=== PATIENT | female | born 1995 | race Caucasian/White ===

== ENCOUNTER 2024-02-03 20:46 | Emergency (ER) | payer OTHER, SELFPAY ==
--- NOTE | ~2024-02-03 | US_ITS ---
EXAMINATION: US OBSTETRICAL ULTRASOUND CLINICAL INFORMATION: patient with bleeding. COMPARISON: None available. LMP: Unknown.. TECHNIQUE: Transabdominal and transvaginal obstetrical ultrasound performed. FINDINGS: The uterus is normal in appearance. The cervix is closed. There is a single intrauterine gestational sac and yolk sac. The mean sac diameter is 0.73 cm suggesting a 5 week 2 day gestation. No pole currently identified. MATERNAL ADNEXA: The right maternal ovary measures 3.7 x 2.3 x 2.4 cm. The left maternal ovary measures 2.4 x 1.5 x 1.7 cm. There is no significant maternal adnexal mass. No maternal pelvic ascites. US/US OB pelvic and transvaginal IMPRESSION: Single intrauterine gestational sac and yolk sac identified suggesting a 5 week 2 day gestation. No pole currently identified. Findings likely related to early . Correlation with quantitative beta hCG and follow-up is needed. Electronically signed by: Farzad Hung MD 02/04/2024 03:16 AM EDT
[2024-02-03 21:37] VITALS: BP 125/74; PULSE 106; RESP 18; TEMP 36.9; O2SAT 100; BMI 28.5
[2024-02-03 22:04] LABS: Hematocrit 38.7 % (37.0-47.0); Hemoglobin 13.9 g/dl (12.0-16.0); Mean Corpuscular HGB Conc 35.9 g/dl (31.0-35.0); Mean Corpuscular Hemoglobin 32.2 pg (27.0-33.0); Mean Corpuscular Volume 89.6 fL (80.0-98.0); Platelet Count 306 X10*3/uL (160-400); Red Blood Count 4.32 X10*6/uL (4.20-5.50); White Blood Count 12.8 X10*3/uL (4.8-10.8)
[2024-02-03 22:08] LABS: Appearance Urine Clear; Color Urine Yellow; Glucose Urine UA Negative (Negative); Leukocyte Esterase Urine Trace (Negative); Nitrite Urine Negative (Negative); Specific Gravity - Urine 1.015 (1.005-1.025); UMIC TRIGGER UACC YES; Urine Blood Negative (Negative); Urine Ketones Negative (Negative); Urine Protein Negative (Neg-Trace)
[2024-02-03 22:25] LABS: Alanine Aminotransferase 37 U/L (0-31); Albumin Level 4.3 g/dL (3.5-5.0); Alkaline Phosphatase 81 U/L (39-117); Anion Gap 10 (12-20); Aspartate Amino Transferase 14 U/L (5-31); Bilirubin Total 0.2 mg/dL (0.0-1.0); Blood Urea Nitrogen 8 mg/dL (9-16); Calcium 9.3 mg/dL (8.4-10.2); Carbon Dioxide 24 mmol/L (22-29); Chloride 107 mmol/L (96-108); Creatinine Clr Calc Pharmacy 113.4; Estimated Glomerular Filt Rate > 60; Glucose Random 138 mg/dL (60-115); HCG Quantitative 7409 mIU/mL; Potassium 3.3 mmol/L (3.3-5.1); Sodium 138 mmol/L (135-145); Total Protein 7.6 g/dL (6.5-8.0)
[2024-02-03 22:40] LABS: Bacteria Urine None Seen (None Seen); Hyaline Casts Urine 0-2 /LPF (0-2); RBC Urine 0-2 /HPF (0-2); WBC Urine 0-5 /HPF (0-5)
[2024-02-04 01:12] VITALS: BP 131/76; PULSE 97; RESP 17; TEMP 36.7; O2SAT 97
--- NOTE | 2024-02-04 01:21 | ED_ITS ---
HPI - Female Genitourinary General Chief complaint: Vaginal Bleeding Stated complaint: Vaginal bleeding Time Seen by Provider: 02/04/24 01:21 Source: patient Mode of arrival: ambulatory Limitations: no limitations History of Present Illness ED Provider: Dr. Farrell HPI Narrative: Patient had her IUD removed 3 months ago and has not had a normal menses since then. This week she had some spotting and right lower abdomina pain. She took 3 tests at home all were positive. She is a 1 para 1. She is RH negative Related Data Allergies Allergy/AdvReac Type Severity Reaction Status Date / Time ibuprofen [IBUPROFEN] Allergy Unknown Hallucinati Unverified 02/03/24 21:44 ons Review of Systems 2 Review of Systems: Yes all other systems are reviewed and are negative Neurologic: Denies Sensory deficit (Neuro) [facility] Social History Social History Advance Directives: No Advance Directives Information Provided: No Do you have a plan to hurt others: No Plan Physical Exam 2 Vital Signs: Vital Signs: Last Vital Signs Temp 98.0 F 02/04/24 01:12 Pulse 97 02/04/24 01:12 Resp 17 02/04/24 01:12 BP 131/76 02/04/24 01:12 Pulse Ox 97 02/04/24 01:12 O2 Del Method Room Air 02/04/24 01:12 BMI result Body Mass Index 28.5 Const: General: healthy appearing Nutritional Appearance: average body habitus Orientation/consciousness: oriented to person and patient oriented x3 Limitations: no limitations HEENT: Head: Yes normal to inspection Ears: external ears normal General nose exam: Normal external nose present Mouth: Normal oral and palatal mucosa present and oropharynx normal Throat: Yes posterior oropharynx normal Eyes: General: appearance normal, both eyes and all related structures Neck: Other: supple Neck: Yes normal visual inspection Chest: Chest palpation & inspection: normal inspection of the chest Resp: Auscultation: clear to auscultation bilaterally Cardio: Jugular venous distension: no JVD Rate: regular rate Rhythm: r egular rhythm Heart sounds: S1 normal heart sound present and S2 normal heart sound present GI: Inspection: Yes normal to inspection Palpation (GI): Soft to palpation, nontender and No hepatosplenomegaly present Auscultation: normal bowel sounds : General: Yes no CVA tenderness Back/Spine/Pelvis: Back: no CVA tenderness Skin: General skin exam: no rashes or lesions noted Neuro: General: oriented to person and patient oriented x3 Cranial nerves: Yes CN's II-XII intact bilaterally Motor exam (neuro): 5/5 motor strength present throughout Sensory Exam: No Sensory deficit (Neuro) Extrem: General: Yes normal to inspection Psych: Appearance: grossly normal Course Reevaluation(s) Reevaluation #1: patient with Bhcg of 7400, US shows gestational sac no pole, early vs threatened will give rhogam, and refer to studio musician. Time: 03:59 Medical Decision Making Differential Diagnosis Differential Diagnoses: The differential diagnosis associated with the presentation includes (ectopic , IUP, threatened , miscarriage) Admission/Observation Consideration of admission/observation: Escalation of care including admission/observation considered (upon arrival patient considered for admission) Lab Data 02/03/24 21:57 02/03/24 21:57 Labs: Lab Results 02/03/24 02/04/24 Range/Units 21:57 02:02 WBC 12.8 H (4.8-10.8) X10*3/uL RBC 4.32 (4.20-5.50) X10*6/uL Hgb 13.9 (12.0-16.0) g/dl Hct 38.7 (37.0-47.0) % MCV 89.6 (80.0-98.0) fL MCH 32.2 (27.0-33.0) pg MCHC 35.9 H (31.0-35.0) g/dl RDW 12.0 (11.0-16.0) % Plt Count 306 (160-400) X10*3/uL MPV 9.0 L (9.4-12.3) fL Absolute Nucleated RBC 0.000 (0.0-0.012) X10*3/uL Nucleated RBC % (auto) 0.0 (0.0-0.2) /100WBC Sodium 138 (135-145) mmol/L Potassium 3.3 (3.3-5.1) mmol/L Chloride 107 (96-108) mmol/L Carbon Dioxide 24 (22-29) mmol/L Anion Gap 10 L (12-20) BUN 8 L (9-16) mg/dL Creatinine 0.72 (0.5-1.4) mg/dL Estim Creat Clear Calc 113.4 Estimated GFR > 60 Random Glucose 138 H (60-115) mg/dL Calcium 9.3 (8.4-10.2) mg/dL Total Bilirubin 0.2 (0.0-1.0) mg/dL AST 14 (5-31) U/L ALT 37 H (0-31) U/L Alkaline Phosphatase 81 (39-117) U/L Total Protein 7.6 (6.5-8.0) g/dL Albumin 4.3 (3.5-5.0) g/dL Beta HCG, Quant 7409 mIU/mL Urine Color Yellow Urine Appearance Clear Urine pH 8.0 (5.0-9.0) Ur Specific [place] 1.015 (1.005-1.025) Urine Protein Negative (Neg-Trace) mg/dL Urine Glucose (UA) Negative (Negative) mg/dL Urine Ketones Negative (Negative) mg/dL Urine Blood Negative (Negative) Urine Nitrite Negative (Negative) Ur Leukocyte Esterase Trace H (Negative) Urine RBC 0-2 (0-2) /HPF Urine WBC 0-5 (0-5) /HPF Ur Squamous Epith Cells 3-5 (0-2) /HPF Urine Bacteria None Seen (None Seen) Hyaline Casts 0-2 (0-2) /LPF Blood Type B Negative Antibody Screen NEGATIVE Independent Interpretation I performed an independent interpretation of an: Ultrasound (IUP non pole) Radiology Impression Discussion of test interpretation with radiology: I have reviewed the radiologist's reading. Independent Historian Clinical information obtained from an independent historian. History obtained from or confirmed by: Parent Prescription Management I considered prescription management with: Antibiotic (no evidence of UTI) Discharge Plan Discharge Clinical Impression: Threatened , Intrauterine Patient Disposition: Home, Self-Care Instructions: Threatened Miscarriage (ED) Referrals: Reese Robles MD [Physician] - 3 days Print Language: Portuguese
[2024-02-04 04:09] VITALS: BP 114/62; PULSE 70; RESP 19; TEMP 36.8; O2SAT 96
[2024-02-04] MEDS: Rho(D) Immune Globulin 300 MCG SYRINGE IM (04:19)
[2024-02-04 04:23] VITALS: BP 121/74; PULSE 94; RESP 16; TEMP 36.8; O2SAT 100
== END 2024-02-04 04:24 | disposition home or self-care (01) ==
PROVIDERS: Emergency Provider Emergency Medicine; PCP Nurse Practitioner
DX: O20.0 Threatened abortion (principal); N93.9 Abnormal uterine and vaginal bleeding, unspecified; R10.31 Right lower quadrant pain; Z79.899 Other long term (current) drug therapy
CPT/HCPCS: 36415; 76801; 76817; 80053; 81001; 84702; 85027; 86850; 86900; 86901; 96372; 99283; 99284; J2790